=== PATIENT | female | born 1990 | race African-American/Black ===

== ENCOUNTER 2023-02-15 18:08 | Observation (INO) | payer OTHER ==
[~2023-02-15] VITALS: Ht 160 cm; Wt 110.5 kg
[2023-02-15 19:30] VITALS: BP 108/45; PULSE 77; TEMP 98.9
--- NOTE | 2023-02-15 19:57 | NUR ---
Pt arrived to facility at 1909 on 02/15/23 as a transfer from [place]. She is alert and oriented x4. She has been up and to the restroom. She was oriented to the room. VS assessed. She is moaning and complaining of abdominial pain.
[2023-02-15] MEDS ORDERED: DYNAPEN500 MG (20:07)
[2023-02-15] MEDS ORDERED: PRENATAL VIT + LOWFE (20:08)
[2023-02-15] MEDS ORDERED: VALTREX 50500 MG/TAB PO (20:10)
[2023-02-15] MEDS ORDERED: DULCOLAX STOOL100 MG (20:12)
[2023-02-15] MEDS ORDERED: IBU800 M1 (20:13)
[2023-02-15] MEDS ORDERED: NATURAL IRON65 MG (20:15)
[2023-02-15] MEDS ORDERED: MIRALAX510G (20:15)
[2023-02-15] MEDS ORDERED: ROXICODONE 55 MG/TAB (20:16)
[2023-02-15] MEDS ORDERED: TYLENOL 325MG325 MG (20:17)
[2023-02-15] MEDS ORDERED: GLUCOPHAGE500 MG/TAB (20:21)
[2023-02-15 22:42] VITALS: BP 108/64; PULSE 103
[2023-02-15 23:20] LABS: ANION GAP 11 mmol/L (7-16); BLOOD UREA NITROGEN 13 mg/dL (7-19); CALCIUM 8.6 mg/dL (8.4-10.2); CARBON DIOXIDE 21 mmol/L (22-29); CHLORIDE 108 mmol/L (98-107); CREATININE, serum 0.71 mg/dL (0.57-1.11); GLUCOSE 107 mg/dL (70-99); MAGNESIUM 1.5 mg/dL (1.6-2.6); PHOSPHOROUS 2.6 mg/dL (2.3-4.7); POTASSIUM 3.7 mmol/L (3.5-4.5); SODIUM 140 mmol/L (136-145)
[2023-02-15 23:36] VITALS: BP 140/66; PULSE 93; TEMP 97.7
[2023-02-15 23:41] LABS: TROPONIN-I < 0.010 ng/mL (0.00-0.033)
[2023-02-16 04:39] VITALS: BP 116/65; PULSE 87; TEMP 98
[2023-02-16 06:23] LABS: BASO % 0.3 % (0.0-2.0); GRAN # 3.2 K/mm3 (1.4-6.5); GRAN % 83.6 % (42.2-75.2); HEMOGLOBIN 11.5 g/dl (12.5-16.0); LYMPH # 0.4 K/mm3 (1.2-3.4); LYMPH % 11.6 % (20.0-51.0); MEAN CELL VOLUME 79 fl (80.0-100.0); MEAN CORPUSCULAR HEMOGLOBIN 25 pg (27-31); MEAN CORPUSCULAR HGB CONC 32 g/dl (33.0-37.0); MEAN PLATELET VOLUME 11.1 fl (7.4-10.4); MONO # 0.2 K/mm3 (0.1-0.6); PLATELET COUNT 232 K/mm3 (130-400); RED BLOOD COUNT 4.58 M/mm3 (4.10-5.30); REDCELL DISTRIBUTION WIDTH-CV 14.8 % (11.5-14.5)
[2023-02-16 06:34] LABS: CALCIUM 8.2 mg/dL (8.4-10.2); CREATININE, serum 0.68 mg/dL (0.57-1.11); POTASSIUM 3.9 mmol/L (3.5-4.5)
[2023-02-16 06:39] LABS: HEMATOCRIT 36.2 % (37.0-47.0)
[2023-02-16 07:50] VITALS: BP 100/53; PULSE 85; TEMP 98.4
--- NOTE | 2023-02-16 08:00 | NUR ---
Patient laying in bed sleeping. Easily awakened with verbal command. A&Ox4, drowsy. VSS. IV CDI. Denies pain and discomfort. Call light within reach
--- NOTE | 2023-02-16 10:22 | NUR ---
SW met with to complete intake. Pt reports independent on all ADLS and does not use any DME. Pt is and her name is Colleen [phone] and she reports she does not have a DPOA-HC and is not interested in one at this time. She reports she goes to [facility] for medical care and gets medications from [facility]. No other needs at this time and SW to follow up as needed. DC: Home, when medically stable.
[2023-02-16 11:57] VITALS: BP 102/54; PULSE 77; TEMP 98.6
[2023-02-16 15:21] VITALS: BP 117/69; PULSE 89; TEMP 98.1
--- NOTE | 2023-02-16 20:00 | NUR ---
Patient laying in bed talking on the phone. A&Ox4. VSS. IV CDI. Denies pain and discomfort. Independent in the room. Call light within reach
[2023-02-16 20:23] VITALS: BP 100/56; PULSE 68; TEMP 98.2
--- NOTE | 2023-02-16 23:00 | NUR ---
pt care taken over by this nurse. pt appears to be resting in bed.
[2023-02-16 23:41] VITALS: BP 97/48; PULSE 67; TEMP 98.8
[2023-02-17 04:24] VITALS: BP 104/59; PULSE 63; TEMP 98.4
--- NOTE | 2023-02-17 08:30 | NUR ---
Pt. sitting up in bed. Pt. is A&OX3, assessment complete. INT to rt. forearm patent. Pt. denies pain. Pt. refuses lovenox at this time. Pt. also refused metorprolol, but bp was also lower this am. Pt. denies further needs, call light within reach.
[2023-02-17 08:48] VITALS: BP 116/69; PULSE 79; TEMP 98.8
[2023-02-17 12:00] VITALS: BP 121/64; PULSE 84; TEMP 98.4
--- NOTE | 2023-02-17 14:00 | NUR ---
Pt. has discharge orders. INT discontinued from rt. forearm. Reviewed and gave discharge paperwork to the pt. Pt. voices understanding. Pt. escorted out by this nurse.
== END 2023-02-17 14:00 | disposition home or self-care (01) ==
LOC: MEDICAL 18:08
PROVIDERS: Nurse Practitioner Family; ADMIT Internal Medicine
DX: I47.20 Ventricular tachycardia, unspecified (principal); E28.2 Polycystic ovarian syndrome; E66.01 Morbid (severe) obesity due to excess calories; B00.9 Herpesviral infection, unspecified; R10.9 Unspecified abdominal pain; R11.2 Nausea with vomiting, unspecified; E83.42 Hypomagnesemia; E87.6 Hypokalemia; I48.20 Chronic atrial fibrillation, unspecified; I47.21 Torsades de pointes; Z68.41 Body mass index [BMI] 40.0-44.9, adult; Z87.891 Personal history of nicotine dependence
CPT/HCPCS: G0378; G0379; J1650; J2270; J3475; J3480; J7120; Q9967